=== PATIENT | male | born 1940 | race Caucasian/White ===

== ENCOUNTER → 2016-11-20 | Outpatient (CLI) | payer OTHER ==
[~2016-11-20] VITALS: Ht 180.3 cm; Wt 92.1 kg
[~2016-11-20] MED LIST: ADULT LOW DOSE81 MG PO; ASPIR 8181 MG PO; COLACE 100 MG100 MG; FINASTERIDE PO; FISH OIL 1,001000 M2 PO; FISHOIL PO; FLEXERIL PO; FLOMAX OR; HYDROCODONE-AP1 EAC6; HYDROCODONE-AP1 EAC6 PO; IBUPROFEN 200200 M1 PO; LEVAQUIN 750 M750 MG PO; LIPITOR10 MG PO; MEDROL DOSPAK21 TA1 PO; MULTIVITAMINS PO; NABUMETONE 750750 M1 PO; OMEGA-31000 MG PO; OXYCODONE HCL5 M1; PERCOCET 5-3251 EACH PO; PERCOCET 7.5-31 EACH PO; PRILOSEC 20 MG20 MG PO; PROMETHAZINE HC25 M1 PO; RAPAFLO4 MG PO
--- NOTE | ~2016-11-20 | HPC ---
[facility] [address] [place] [address] PAIN MANAGEMENT CONSULTATION Name: MAURI RAMOS Room #: REG [facility] Dotty#: [id number] Admission: 11/20/16 Attend Phys: Zac Rizzo DO Discharge: Date of : 42 Report #: [id number] THIS REPORT FOR: //name// CC: JARON Rizzo HISTORY OF PRESENT ILLNESS: The patient is a very pleasant 76-year-old gentleman, prior seen in the pain clinic for symptomatic lumbar radiculopathy in October 2015. Had subsequent back surgery with overall improvement of pain. He has had some recurrence of axial back pain with acute exacerbation of pain when he lifted a car battery to carry it out of the basement. He has had ongoing right low back pain with some radicular component on the right leg. He notes the pain is constant, sharp; rates at 7-8 on VAS; exacerbated with moving and standing. He has tried chiropractic manipulation; Flexeril, Percocet and ibuprofen all with nominal efficacy. Today, he notes the pain is primarily right low back with really no radicular component at this time. Rates the pain as 7-8 on a VAS. PHYSICAL EXAMINATION: Shows a 76-year-old gentleman, BMI is 28.3 kilograms per meter squared. Blood pressure is modestly elevated at 160/98, pulse 50, respirations 16. Alert and oriented to person, place and time; judged to be a reasonable historian. Rises from the chair using the armrest, modestly antalgic gait, discrete tenderness over the right low back, L4-L5 area. Pain is exacerbated with side bending and rotation. Flexion is limited to about 30 degrees. Lower extremity strength is objectively symmetric. Straight leg raise is negative at this time. Patellar and Achilles reflexes are symmetric. MRI was obtained prior to his back surgery, MRI was 10/26/2015, did show isovrnca-pt-mubner bilateral neural foraminal stenosis at L2-L3, superimposed right foraminal disk at L3-L4, neural foraminal stenosis L4-L5, noted superimposed right foraminal disk at this level as well. The patient had back surgery with Dr. Herman Lambert at [facility]. ASSESSMENT: Symptomatic right facet mediated pain in a gentleman with lumbar spondylosis, status post lumbar decompressive laminectomy, possible component of lumbar radiculopathy. RECOMMENDATIONS: 1. After discussion with the patient today about therapeutic options, discontinue oiat-mzn-ekqwgxd anti-inflammatories. Will start Relafen 750 b.i.d. for 30 days. 2. Right L3-L4 and L4-L5 facet joint injections under fluoroscopy. 3. With the patient prone, palpating epicenter of pain, these with the facet that appeared to be primarily responsible for pain given location and fluoroscopy. [address] [address] PAIN MANAGEMENT CONSULTATION Name: RICHARDMAURI ANN Room #: REG SEYMOUR Storm#: [id number] Admission: 11/20/16 Attend Phys: Zac Rizzo DO Discharge: Date of : 42 Report #: [id number] 4. Continue range of motion and exercise including walking up to 6-8 miles a day, follow up in 2 weeks for reevaluation. If symptoms are not significantly improved, we will want to get a new MRI to make sure we are not overlooking any other treatable pathology causing current pain. Thank you for allowing me to participate in the patient's care. I will keep you abreast of his progress. PROCEDURE NOTE: Right L3-L4 and L4-L5 facet joint injections under fluoroscopy. DESCRIPTION OF PROCEDURE: After written informed consent was obtained, the patient was taken in fluoroscopic suite, placed in prone position. After sterile prep and drape, a skin wheal was raised. Two 22-gauge stylet needle was placed to contact the inferior aspect of the right L3 and right L4-L5 facet joint. AP and lateral projections showed good needle placement. 40 mg triamcinolone plus 1 mL of 0.5% preservative-free bupivacaine was injected at each site. Both needles removed. The area was cleansed, Band-Aids applied. The patient was allowed to ambulate to recovery room, monitored for an appropriate period of time, discharged in good and stable condition, noting incremental improvement of baseline pain. Follow up in 2 weeks for reevaluation. <ELECTRONICALLY SIGNED> By: Zac Rizzo DO 11/24/16 0840 1535 1307 Zac Rizzo DO /nt
[2016-11-20 08:13] VITALS: BP 160/98
== END | disposition home or self-care (01) ==
LOC: PAIN 06:25
DX: M47.26 Other spondylosis with radiculopathy, lumbar region (principal); M47.817 Spondylosis without myelopathy or radiculopathy, lumbosacral region

== ENCOUNTER → 2016-12-04 | Outpatient (CLI) | payer OTHER ==
[~2016-12-04] VITALS: Ht 180.3 cm; Wt 89.7 kg
--- NOTE | ~2016-12-04 | HPC ---
[facility] [place] [address] [place] [address] PAIN MANAGEMENT CONSULTATION Name: RICHARDMAURI JUAREZ Room #: REG SEYMOUR Storm#: [id number] Admission: 12/04/16 Attend Phys: Zac Rizzo DO Discharge: Date of : 42 Report #: [id number] THIS REPORT FOR: //name// CC: Dennis Rizzo DATE OF SERVICE: 12/04/2016 The patient is a 76-year-old gentleman being treated for symptomatic lumbar radiculopathy status post decompressive laminectomy. He was seen 11/20/2016, I had not seen him since the prior year when he had ongoing radicular pain and we referred him to Dr. Herman Lambert for decompressive laminectomy. He did have a decompressive laminectomy and was actually doing reasonably well. Unfortunately, he had lifted a battery and carried it out of basement with acute exacerbation of axial back pain. Last visit we did right L3-4 and L4-5 facet joint injection under fluoroscopy. I did get an MRI of the lumbar spine. He returns to pain clinic today. I am pleased to note that he notes pain is really well controlled ongoing. He rates his pain a 2 on the Visual Analog Scale. Notes pain is still exacerbated with bending and lifting, though he walks 8-12 miles a day. He appears quite fit. PHYSICAL EXAMINATION: Shows a 76-year-old gentleman, BMI is 27.6 kg/m2. Blood pressure is modestly elevated at 139/94, pulse 58, respirations 20. Rises from chair using armrest. Gait is tandem. Does have a little diffuse tenderness in the low back, but again significantly improved from last visit. We did review his MRI from 12/01/2016. I used a plastic model of spine to review his specific anatomy. He does have zvbj-sk-bzbvzjbj degenerative disk disease L2-3 through L4-5. Posterior annular tears are noted L1-2 through L4-5. L2-3 notes superimposed disk bulge far lateral with left neural foraminal narrowing. L3-4 shows the prior right laminotomy defect. He does have superimposed shallow disk protrusion with eccentric right lateral recess narrowing. L4-5 notes shallow disk protrusion. He does have lumbar spondylosis at multiple levels. ASSESSMENT: Symptomatic lumbar radiculopathy status post decompressive laminectomy with component of lumbar spondylosis, symptoms well controlled with prior facet joint injections, right L3-4 and L4-5. The patient specifically notes 80% ongoing relief. RECOMMENDATIONS: Discussed with the patient today about therapeutic options. Presently, we will have him start using the nabumetone 750 b.i.d. on a nondaily p.r.n. basis. We did talk about cardiac risk factors and NSAID agents as a general class. I will be happy to see the patient as needed if symptoms recur. While he has significant areas of pathology in the back, they do not correlate [address] [address] PAIN MANAGEMENT CONSULTATION Name: MAURI RAMOS Room #: REG SEYMOUR Storm#: [id number] Admission: 12/04/16 Attend Phys: Zac Rizzo DO Discharge: Date of : 42 Report #: [id number] with specific radicular findings at this time. If symptoms come back in short order, we can consider medial branch dorsal rami diagnostic blocks with consideration for radiofrequency neurolysis of the same. If, however, symptoms come back months down the road, we can simply repeat the facet joint injections. Thank you for allowing me to participate in the patient's care. <ELECTRONICALLY SIGNED> By: Zac Rizzo DO 12/05/16 0949 1503 1941 Zac Rizzo DO /nt
[2016-12-04 09:54] VITALS: BP 139/94
== END | disposition home or self-care (01) ==
LOC: PAIN 06:55
DX: M47.26 Other spondylosis with radiculopathy, lumbar region (principal); Z98.890 Other specified postprocedural states; Z91.041 Radiographic dye allergy status; Z79.82 Long term (current) use of aspirin; Z79.899 Other long term (current) drug therapy

== ENCOUNTER → 2017-05-01 | Outpatient (CLI) | payer OTHER ==
[~2017-05-01] VITALS: Ht 180.3 cm; Wt 92.3 kg
[~2017-05-01] MED LIST changes: +ANTIVERT25 MG PO; +BACTRIM DS TAB1 EACH PO; +NORCO 5-325 TA1 EACH PO; +VALIUM2 MG PO
--- NOTE | ~2017-05-01 | HPC ---
[facility] [place] [address] PAIN MANAGEMENT CONSULTATION Name: RICHARDMAURI SANTOROJEANETTE Room #: REG SEYMOUR Storm#: [id number] Admission: 05/01/17 Attend Phys: Zac Rizzo DO Discharge: Date of : 42 Report #: [id number] THIS REPORT FOR: //name// CC: Dennis Rizzo DATE OF SERVICE: 05/01/2017 The patient is a very pleasant 77-year-old gentleman well known to pain clinic, has been treated for lumbar radicular symptoms status post decompressive laminectomy, and is generally status post cervical decompressive laminectomy a decade ago. The last 2 visits in October and November of last year, he was treated for lumbar spondylitic pain (M47.816, M47.817) without myelopathy. Pain was primarily right-sided. On 11/20/2016, I did write L3-L4 and right L4-L5 facet joint injections. On followup on 12/04/2016, the patient was doing well. We continued on nabumetone p.r.n. The patient returns to pain clinic today. He has had recurrent right lumbar radicular pain down the right leg. He notes the axial back pain is actually fairly quiescent. He notes the pain is lancinating down the right leg. He denies specific antecedent trauma and overuse. Pain has been present for some 6 weeks now. The patient has done physical therapy including daily walking anywhere from 4-8 miles and pain seems to be getting worse. He does take pqwy-sra-uyfijcf nonsteroidal anti-inflammatory medication, again all with nominal efficacy. PHYSICAL EXAMINATION: Shows a 77-year-old gentleman, vital signs are stable. Alert and oriented to person, place and time, judged to be a reasonable historian. Vital signs and BMI are on the EMR. He does not use tobacco products. He does complain of subjective pain 8 on a VAS. Rises from chair using armrest, he has modestly antalgic gait, positive straight leg raise on the right. Slight decreased right hip flexion and lower extremity extension strength. Right patellar reflex is slightly diminished compared to the left. Well-healed surgical scar. Diffuse tenderness across the low back. DIAGNOSTIC STUDIES: MRI from 12/01/2016 notes L3-L4 laminotomy, but right-sided L3-L4 and primarily L4-L5 herniated nucleus pulposus. ASSESSMENT: 1. Symptomatic lumbar radiculopathy by clinical exam and history, acute exacerbation of right L4 radicular pain, status post L3-L4 laminotomy. 2. Lumbar spondylosis without myelopathy M47.816 and M47.817, those symptoms are relatively quiescent, that is what he had been seen for in the past. 3. History of cervical radiculopathy, status post cervical decompressive laminectomy. [address] [address] PAIN MANAGEMENT CONSULTATION Name: MAURI RAMOS Room #: REG [facility] Bishop.#: [id number] Admission: 05/01/17 Attend Phys: Zac Rizzo DO Discharge: Date of : 42 Report #: [id number] RECOMMENDATION: Discussion with the patient today about therapeutic options. We have elected to move forward with epidural injection under fluoroscopy today, right of midline L4-L5. Continue nonsteroidal anti-inflammatory medication and physical therapy. Tentative followup in 2 weeks. If symptoms are not significantly improved, we will try a right L4-L5 transforaminal epidural injection at that time. PROCEDURE NOTE: Lumbar epidural injection under fluoroscopy. PROCEDURE NOTE: After both written and informed consent to include risk of spinal cord damage, increased pain, weakness and dural puncture, the patient was taken to the fluoroscopy suite, placed in the prone position. After sterile prep and drape, a skin wheal with lidocaine was raised. A 22-gauge epidural Tuohy needle was inserted in the midline at L4-L5 with good loss to resistance. Negative aspiration for cerebrospinal fluid or blood was noted. Then 1 mL of Omnipaque under biplanar fluoroscopy showed good spread within the epidural space. This was followed with 80 mg of triamcinolone plus 1 mL of 1.5% preservative-free Xylocaine, 0.5 mL Xylocaine was then injected to flush the needle; it was removed. The patient was monitored for an appropriate period of time and discharged in good and stable condition. <ELECTRONICALLY SIGNED> By: Zac Rizzo DO 05/07/17 0938 0945 1128 Zac Rizzo DO /nt
[2017-05-01 08:57] VITALS: BP 124/97
== END | disposition home or self-care (01) ==
LOC: PAIN 07:03
DX: M54.16 Radiculopathy, lumbar region (principal); M47.26 Other spondylosis with radiculopathy, lumbar region; Z98.890 Other specified postprocedural states; M54.12 Radiculopathy, cervical region

== ENCOUNTER 2017-05-07 11:39 | Emergency (ER) | payer OTHER ==
[~2017-05-07] VITALS: Ht 182.9 cm; Wt 90.7 kg
--- NOTE | ~2017-05-07 | EKG ---
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: [facility] : 1940 Requested By: Montrell Cano Order Number: [id number] MD: Tk Wagoner Measurements Intervals [place] Rate: 60 P: 74 PA: 210 QRS: 66 QRSD: 78 T: 63 QT: 442 QTc: 442 Interpretive Statements Sinus rhythm Abnormal R-wave progression, early transition Compared to ECG 09/14/2008 12:40:18 Sinus bradycardia no longer present Electronically Signed On 05-10-2017 13:21:04 CDT by Tk Wagoner [email or web address] <ELECTRONICALLY SIGNED> By: Tk Wagoner MD, [facility] 05/10/17 1321 1141 1141 Tk Wagoner MD, FAC /EPI
[~2017-05-07 11:39] MED LIST changes: -ANTIVERT25 MG PO; -BACTRIM DS TAB1 EACH PO; -NORCO 5-325 TA1 EACH PO; -VALIUM2 MG PO
[2017-05-07 12:13] LABS: ABSOLUTE NEUTROPHILS 7.2 thou/uL (1.4-8.2); BASOPHILS 0.3 % (0.0-2.0); EOSINOPHILS 0.1 % (0.0-3.0); HEMATOCRIT 47.2 % (42.0-52.0); HEMOGLOBIN 16.4 gm/dL (14.0-18.0); LYMPHOCYTES 26.8 % (24.0-44.0); MCH 32.9 pg (26.0-34.0); MCHC 34.7 g/dL (28.0-37.0); MCV 94.7 fL (80.0-100.0); MONOCYTES 8.7 % (1.0-8.0); PLATELET COUNT 206 thou/uL (150-400); POLYS 64.1 % (36.0-66.0); RBC 4.98 mil/uL (4.50-6.00); RDW 12.2 % (10.5-14.5); WBC 11.2 thou/uL (4.0-11.0)
[2017-05-07 12:24] LABS: ANION GAP 14 mmol/L (7-16); BUN 31 mg/dL (7-18); CALCIUM 9.7 mg/dL (8.5-10.1); CHLORIDE 102 mmol/L (98-107); CO2 21 mmol/L (21-32); CREATININE 1.2 mg/dL (0.7-1.3); GLUCOSE 167 mg/dL (74-106); POTASSIUM 4.1 mmol/L (3.5-5.1); SODIUM 137 mmol/L (136-145)
[2017-05-07 12:32] LABS: SGOT 22 U/L (15-37); SGPT 36 U/L (30-65); TOTAL BILIRUBIN 0.6 mg/dL (<0.1-1.0); TROPONIN-I < 0.04 ng/mL (<0.06)
[2017-05-07] MEDS ORDERED: ANTIVERT25 MG PO (14:10)
[2017-05-07] MEDS ORDERED: VALIUM2 MG PO (14:10)
[2017-05-07 14:11] VITALS: BP 141/72
== END 2017-05-07 14:27 | disposition home or self-care (01) ==
LOC: ER 11:39
PROVIDERS: Emergency Medicine
DX: H81.12 Benign paroxysmal vertigo, left ear (principal); E78.00 Pure hypercholesterolemia, unspecified; Z91.041 Radiographic dye allergy status

== ENCOUNTER → 2017-05-27 | Outpatient (CLI) | payer OTHER ==
[~2017-05-27] MED LIST changes: +ANTIVERT25 MG PO; +VALIUM2 MG PO
== END ==
LOC: MRI 06:26
DX: M47.26 Other spondylosis with radiculopathy, lumbar region (principal)

== ENCOUNTER → 2017-05-29 | Outpatient (CLI) | payer OTHER ==
[~2017-05-29] VITALS: Ht 180.3 cm; Wt 88.3 kg
--- NOTE | ~2017-05-29 | HPC ---
[facility] [place] [address] [address] [place] [address] PAIN MANAGEMENT CONSULTATION Name: MAURI RAMOS Room #: REG CLElyane Storm#: [id number] Admission: 05/29/17 Attend Phys: Zac Rizzo DO Discharge: Date of : 42 Report #: [id number] THIS REPORT FOR: //name// CC: Dennis Rizzo The patient is a very pleasant 77-year-old gentleman being treated for lumbar radiculopathy status post decompressive laminectomy. He has also had cervical decompressive laminectomy about a decade ago, though those symptoms are relatively quiescent. He does have a component of axial back pain without myelopathy. He has had two lumbar epidural injections, 05/01/2017 and again 05/15/2017 with overall improvement of pain about 80%. He was nearly unable to walk when I first saw him. He prior had decompressive hemilaminectomy in L3-L4 several years ago with good improvement of symptoms. Pain had recurred without antecedent trauma and overuse. He had been quite functional, walking up to 12 miles a day. Given ongoing symptoms after the first injection, we proceeded with a second injection and I also ordered MRI of the lumbar spine with and without contrast. Today, we reviewed those findings which were obtained on 05/27/2017. He has diffuse lumbar spondylosis at L2-L3, L3-L4 and L4-L5. Again, the prior right hemilaminectomy at L3-L4. Concern at L3-L4 that there is a new hyperintensity in the posterior aspect of the disk at 6 o'clock position consistent with a new focal annular tear. He does have severe hypertrophic posterior facet degenerative changes. The findings are suggestive of interval right hemilaminectomy and right lateral recess narrowing with a disk bulge extending into the right neural foramen resulting in mild right neural foraminal narrowing. ASSESSMENT: Symptomatic lumbar radiculopathy status post decompressive laminectomy, ongoing radicular pain in right L3 pattern, neurogenic claudication, component of axial back pain without myelopathy. RECOMMENDATIONS: I had a long discussion with the patient today about therapeutic options. I did contact Dr. Herman Lambert who kindly returned my phone call. We have elected to repeat a third lumbar epidural steroid injection today, have the patient follow up with Dr. Herman Lambert for evaluation. Dr. Lambert will present the patient's case to the weekly multidisciplinary spinal meeting for discussion and consideration for therapeutic options at that time. Today, we did briefly discuss spinal cord stimulator as a therapeutic option. I gave the patient print and video literature regarding and high frequency Nevro spinal cord stimulator system. Today, we would like to proceed with repeat epidural [place] [address] PAIN MANAGEMENT CONSULTATION Name: MAURI RAMOS Room #: REG CLElayne Storm#: [id number] Admission: 05/29/17 Attend Phys: Zac Rizzo DO Discharge: Date of : 42 Report #: [id number] ASSESSMENT: Symptomatic lumbar radiculopathy status post decompressive laminectomy. PROCEDURE: Midline epidural injection under fluoroscopy. PROCEDURE NOTE: After both written and informed consent to include risk of spinal cord damage, increased pain, weakness and dural puncture, the patient was taken to the fluoroscopy suite, placed in the prone position. After sterile prep and drape, a skin wheal with lidocaine was raised. A 22-gauge epidural Tuohy needle was inserted in the midline at L3-L4 with good loss to resistance. Negative aspiration for cerebrospinal fluid or blood was noted. Then 1 mL of Omnipaque under biplanar fluoroscopy showed good spread within the epidural space. This was followed with 80 mg of triamcinolone plus 1 mL of 1.5% preservative-free Xylocaine, 0.5 mL Xylocaine was then injected to flush the needle; it was removed. The patient was monitored for an appropriate period of time and discharged in good and stable condition. <ELECTRONICALLY SIGNED> By: Zac Rizzo DO 06/01/17 0809 1233 1358 Zac Rizzo DO /nt
[2017-05-29 09:44] VITALS: BP 130/95
== END | disposition home or self-care (01) ==
LOC: PAIN
DX: M54.16 Radiculopathy, lumbar region (principal); G62.9 Polyneuropathy, unspecified; Z98.890 Other specified postprocedural states

== ENCOUNTER 2017-08-01 08:54 | Emergency (ER) | payer OTHER ==
[~2017-08-01] VITALS: Ht 180.3 cm; Wt 83.9 kg
--- NOTE | ~2017-08-01 | EKG ---
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
[2017-08-01 09:34] LABS: URINE BLOOD 2+ (Negative); URINE CLARITY CLEAR; URINE COLOR YELLOW; URINE GLUCOSE-RANDOM* TRACE (Negative); URINE KETONES NEGATIVE (Negative); URINE NITRITE-REFLEX NEGATIVE (Negative); URINE PROTEIN (DIPSTICK) TRACE (Negative); URINE SPECIFIC GRAVITY 1.015 (1.005-1.035); URINE UROBILINOGEN >= 8.0 E.U./dl (0.2-1.0)
[2017-08-01 09:35] LABS: URINE LEUKOCYTES-REFLEX 2+ (Negative)
[2017-08-01 09:36] LABS: ICTOTEST (BILI CONFIRMATORY) Negative (Negative); URINE BILIRUBIN NEGATIVE (Negative)
[2017-08-01] MEDS ORDERED: NORCO 5-325 TA1 EACH PO (09:42)
[2017-08-01 09:44] LABS: AMP/METHAMP Negative (Negative); BACTERIA-REFLEX >30 Many /HPF (None Seen); BARBITURATES Negative (Negative); BENZODIAZEPINES Negative (Negative); CASTS None Seen /LPF (None Seen); COCAINE Negative (Negative); CRYSTALS None Seen /LPF (None Seen); METHADONE Negative (Negative); OPIATES POSITIVE (Negative); PCP Negative (Negative); SQUAMOUS None Seen /LPF (0-3); URINE RBC 0-2 Rare /HPF (0-2); URINE WBC-REFLEX 6-15 Few /HPF (0-5)
[2017-08-01] MEDS ORDERED: FLEXERIL PO (09:44)
[2017-08-01 09:47] LABS: HEMATOCRIT 30.8 % (42.0-52.0); HEMOGLOBIN 10.9 gm/dL (14.0-18.0); MCH 33.9 pg (26.0-34.0); MCHC 35.2 g/dL (28.0-37.0); MCV 96.4 fL (80.0-100.0); PLATELET COUNT 134 thou/uL (150-400); RDW 13.6 % (10.5-14.5); WBC 7.1 thou/uL (4.0-11.0)
[2017-08-01 09:54] LABS: ANION GAP 10 mmol/L (7-16); BUN 22 mg/dL (7-18); CALCIUM 8.6 mg/dL (8.5-10.1); CHLORIDE 96 mmol/L (98-107); CO2 24 mmol/L (21-32); CREATININE 1.3 mg/dL (0.7-1.3); GLUCOSE 252 mg/dL (74-106); POTASSIUM 4.1 mmol/L (3.5-5.1); SODIUM 130 mmol/L (136-145)
[2017-08-01 10:03] LABS: ALBUMIN 2.5 g/dL (3.4-5.0); MAGNESIUM 1.7 mg/dL (1.8-2.4); SGOT 43 U/L (15-37); SGPT 61 U/L (30-65); TOTAL BILIRUBIN 1.4 mg/dL (<0.1-1.0); TOTAL PROTEIN 6.4 g/dL (6.4-8.2); TROPONIN-I < 0.04 ng/mL (<0.06)
[2017-08-01 10:11] LABS: ABSOLUTE NEUTROPHILS 6.1 thou/uL (1.4-8.2)
[2017-08-01 10:12] LABS: ANISOCYTOSIS 1+; POLYCHROMASIA OCCASIONAL
[2017-08-01] MEDS ORDERED: BACTRIM DS TAB1 EACH PO (10:42)
== END 2017-08-01 11:12 | disposition home or self-care (01) ==
LOC: ER 08:54
PROVIDERS: Emergency Medicine
DX: M54.2 Cervicalgia (principal); N39.0 Urinary tract infection, site not specified; R94.5 Abnormal results of liver function studies; T48.1X5A Adverse effect of skeletal muscle relaxants [neuromuscular blocking agents], initial encounter; Y92.9 Unspecified place or not applicable; E11.9 Type 2 diabetes mellitus without complications; E78.00 Pure hypercholesterolemia, unspecified; Z91.041 Radiographic dye allergy status

== ENCOUNTER 2017-08-02 16:56 | Emergency (ER) | payer OTHER ==
[~2017-08-02] VITALS: Ht 180.3 cm; Wt 83.9 kg
[~2017-08-02 16:56] MED LIST changes: +BACTRIM DS TAB1 EACH PO; +NORCO 5-325 TA1 EACH PO
== END 2017-08-02 19:08 | disposition home or self-care (01) ==
LOC: ER 16:56
DX: R33.9 Retention of urine, unspecified (principal); E78.00 Pure hypercholesterolemia, unspecified; Z90.89 Acquired absence of other organs; Z91.041 Radiographic dye allergy status

== ENCOUNTER 2017-12-05 18:30 | Emergency (ER) | payer OTHER ==
[~2017-12-05] VITALS: Ht 180.3 cm; Wt 82.6 kg
--- NOTE | ~2017-12-05 | EKG ---
[address] [address] ELECTROCARDIOGRAM REPORT Name: RICHARDMAURI Mckay [facility] [id number] Admission: 12/05/17 Attend Phys: Discharge: 12/05/17 Date of : 42 Report #: [id number] THIS REPORT FOR: //name// [facility] ED Test Date: 2017-12-05 Test Time: 18:55:24 Pat Name: MAURI RAMOS Department: Room: Gender: M Recovery Agent: : 1940 Requested By: Valery Dolan Order Number: [id number] MD: Isiah Gutierrez Measurements Intervals [place] Rate: 56 P: 5 [place]: 166 QRS: 73 QRSD: 91 T: 86 QT: 437 QTc: 422 Interpretive Statements Sinus rhythm Motion artifact Compared to ECG 08/01/2017 09:26:06 No significant changes Electronically Signed On 12-06-2017 16:54:54 CDT by Isiah Gutierrez [email or web address] <ELECTRONICALLY SIGNED> By: Isiah Gutierrez MD 12/06/17 1654 1855 1855 MD SOHAIL Clemons
[2017-12-05 19:08] LABS: ABSOLUTE NEUTROPHILS 8.9 thou/uL (1.4-8.2); BASOPHILS 0.7 % (0.0-2.0); EOSINOPHILS 0.4 % (0.0-3.0); HEMOGLOBIN 13.6 gm/dL (14.0-18.0); LYMPHOCYTES 8.9 % (24.0-44.0); MCH 31.5 pg (26.0-34.0); MCHC 33.9 g/dL (28.0-37.0); MCV 92.8 fL (80.0-100.0); MONOCYTES 7.3 % (1.0-8.0); PLATELET COUNT 192 thou/uL (150-400); POLYS 82.7 % (36.0-66.0); RBC 4.31 mil/uL (4.50-6.00); RDW 12.9 % (10.5-14.5); WBC 10.8 thou/uL (4.0-11.0)
[2017-12-05 19:16] LABS: ANION GAP 9 mmol/L (7-16); BUN 22 mg/dL (7-18); CALCIUM 9.9 mg/dL (8.5-10.1); CHLORIDE 97 mmol/L (98-107); CO2 24 mmol/L (21-32); CREATININE 1.3 mg/dL (0.7-1.3); GLUCOSE 342 mg/dL (74-106); POTASSIUM 4.2 mmol/L (3.5-5.1); SODIUM 130 mmol/L (136-145)
[2017-12-05 19:25] LABS: ALBUMIN 3.3 g/dL (3.4-5.0); LIPASE 58 U/L (73-393); SGOT 17 U/L (15-37); SGPT 26 U/L (30-65); TOTAL BILIRUBIN 0.6 mg/dL (<0.1-1.0); TOTAL PROTEIN 7.6 g/dL (6.4-8.2); TROPONIN-I <0.06 ng/mL (<0.06)
[2017-12-05 19:43] LABS: URINE BILIRUBIN NEGATIVE (Negative); URINE BLOOD 1+ (Negative); URINE CLARITY CLEAR; URINE COLOR YELLOW; URINE GLUCOSE-RANDOM* 3+ (Negative); URINE KETONES TRACE (Negative); URINE LEUKOCYTES-REFLEX NEGATIVE (Negative); URINE NITRITE-REFLEX NEGATIVE (Negative); URINE PROTEIN (DIPSTICK) TRACE (Negative); URINE SPECIFIC GRAVITY 1.025 (1.005-1.035); URINE UROBILINOGEN 0.2 E.U./dl (0.2-1.0)
[2017-12-05 19:49] LABS: BACTERIA-REFLEX None Seen /HPF (None Seen); SQUAMOUS None Seen /LPF (0-3); URINE RBC 3-10 Few /HPF (0-2); URINE WBC-REFLEX 0-5 Rare /HPF (0-5)
[2017-12-05 19:50] LABS: CASTS None Seen /LPF (None Seen); CRYSTALS None Seen /LPF (None Seen)
== END 2017-12-05 21:43 | disposition short-term general hospital (02) ==
LOC: ER 18:30
PROVIDERS: Nurse Practitioner Family
DX: N20.0 Calculus of kidney (principal); R73.9 Hyperglycemia, unspecified; E87.1 Hypo-osmolality and hyponatremia; R11.2 Nausea with vomiting, unspecified; G47.30 Sleep apnea, unspecified; E78.00 Pure hypercholesterolemia, unspecified; Z91.041 Radiographic dye allergy status; Z90.89 Acquired absence of other organs; Z87.442 Personal history of urinary calculi

== ENCOUNTER → 2018-01-29 | Outpatient (CLI) | payer OTHER | LOC: CAT 15:58 | DX: R90.82 White matter disease, unspecified (principal); G31.9 Degenerative disease of nervous system, unspecified; H81.13 Benign paroxysmal vertigo, bilateral ==

== ENCOUNTER → 2018-02-05 | Outpatient (CLI) | payer OTHER | LOC: MRI 13:49 | DX: R42 Dizziness and giddiness (principal); R51 Headache ==

== ENCOUNTER → 2018-05-17 | Outpatient (CLI) | payer OTHER | LOC: CAT 08:27 | DX: N20.0 Calculus of kidney (principal); K42.9 Umbilical hernia without obstruction or gangrene; N40.0 Benign prostatic hyperplasia without lower urinary tract symptoms; K40.20 Bilateral inguinal hernia, without obstruction or gangrene, not specified as recurrent; K76.0 Fatty (change of) liver, not elsewhere classified; K57.30 Diverticulosis of large intestine without perforation or abscess without bleeding; M47.816 Spondylosis without myelopathy or radiculopathy, lumbar region; Z91.041 Radiographic dye allergy status ==

== ENCOUNTER → 2018-07-26 | Outpatient (CLI) | payer OTHER ==
[~2018-07-26] VITALS: Ht 182.9 cm; Wt 83.9 kg
[~2018-07-26] MED LIST changes: +METFORMIN HCL500 MG PO
--- NOTE | ~2018-07-26 | P ---
[facility] [address] [address] PROCEDURE REPORT Name: MAURI RAMOS [id number] Admission: 07/26/18 ������������������ Attend Phys: Federico Morin MD Discharge: ������������������ Date of : 42 Report #: [id number] THIS REPORT FOR: //name// CC: Federico Ho MD DATE OF SERVICE: 07/26/2018 OUTPATIENT COLONOSCOPY: BRIEF HISTORY: The patient is a 78-year-old male for high risk screening colonoscopy due to history of colon polyps. Last colonoscopy was approximately 5 years ago. PREOPERATIVE DIAGNOSIS: High risk screening colonoscopy. POSTOPERATIVE DIAGNOSES: 1. Diminutive polyp at 50 cm. 2. Diverticulosis coli. 3. Small to moderate internal hemorrhoids. 4. Old scarring, splenic flexure. MEDICATIONS: Deep sedation with propofol per anesthesia. SPECIMEN: Polyp from 50 cm. ESTIMATED BLOOD LOSS: 3 mL. PROCEDURE: Colonoscopy to cecum and terminal ileum with biopsy. FINDINGS: Prior to propofol sedation, procedure of colonoscopy discussed with the patient as well as potential risks and its complications. He indicates he understands and desires to proceed. DESCRIPTION OF THE PROCEDURE: With the patient in left lateral decubitus position, digital examination was completed, which revealed no abnormalities. Subsequently, the Olympus video colonoscope was introduced in the rectum, advanced under direct vision to the cecum. Done with minimal difficulty. The cecum was identified by the ileocecal valve and the appendiceal orifice. I was able to visualize the distal segment of the terminal ileum, which was inspected and noted to be unremarkable. At that point, the scope was slowly withdrawn and careful circumferential views were obtained including retroflexing the scope in the ascending colon. Upon slow withdrawal of the scope, the prep was generally good. There were some minor limitations and we were able to clean this up with the scope upon withdrawal of the instrument. The mucosa was within normal [facility] [address] [place] [address] PROCEDURE REPORT Name: RICHARDMAURI Woody Room #: REG [facility] Bishop.#: [id number] Admission: 07/26/18 ������������������ Attend Phys: Federico Morin MD Discharge: ������������������ Date of : 42 Report #: [id number] limits, normal vascular pattern, normal light reflex. No abnormalities were noted until the region of the splenic flexure was reached at which point there was noted to be what appeared to be scarring likely from previous inflammatory process. Active inflammation was not seen. This was felt to be old. The scope was further withdrawn and at 50 cm, a diminutive polyp was seen and removed with biopsy forceps. In the sigmoid colon, there was noted to be moderately severe diverticular disease without endoscopic evidence of diverticulitis. The scope was withdrawn in the rectum, no abnormalities were seen. However, upon retroflexion of the scope, small to moderate internal hemorrhoids were seen. Scope was withdrawn. The patient tolerated the procedure well. CONDITION OF THE PATIENT UPON DISCHARGE: Following procedure, the patient was drowsy, aroused, conversant and will be discharged home when fully ambulatory. INSTRUCTIONS TO THE PATIENT AND FAMILY AT THE TIME OF DISCHARGE: We will follow up on the path of polyp. If this is an adenoma, I suggest return in 5 years for a high risk screening colonoscopy. If it is not an adenoma, then at this point in life, he would not likely benefit from routine colonoscopy. However, if a problem should develop, he could pursue colonoscopy as needed for those problems at that time. Last colonoscopy was in 02/2013. Withdrawal time from cecum was 14 minutes 29 seconds. ��������������������������������������������� ���������������������������������������� By: ��������������������������������������������� 0922 0316 Federico Morin MD /nt
--- NOTE | 2018-07-27 17:06 | PATH ---
[facility] [place] [address] PATHOLOGY RPT PROCEDURE Name: MAURI NUNEZ Room #: REG [facility].#: [id number] ������������������ Admission: 07/26/18 ������������������ Date of : 44 Discharge: Report #: [id number] Path Case #: [id number] [facility] Accession Number: [id number] . 01 Material submitted: . colon - BX POLY AT 50CM . 01 Clinical history: . Pre-OP DX: Hx polyps Post-OP DX: Colon polyp, diverticulosis, hemorrhoid . 02 Diagnosis: Polyp, at 50 cm, endoscopic biopsy: - Inflamed tubular adenoma. - Negative for high grade dysplasia. (IUV/db; 07/27/2018) LBQ/07/27/2018 . 02 Electronically signed: . Lourdes Hutson MD, Pathologist NPI- [id number] . 01 Gross description: . Received in formalin labeled "Mauri Nunez, BX polyp at 50 cm," is a single segment of jacobs soft tissue measuring 0.4 cm in maximum dimension. The specimen is entirely submitted in cassette A1. (TSD; 07/26/2018) TOB/TOB . 02 Pathologist provided ICD-10: D12.6 . 02 CPT . 160717 Specimen Comment: A courtesy copy of this report has been sent to Specimen Comment: [phone], . Specimen Comment: Report sent to / DR CALZADA Performed at: [address], [place] [id number] MD Shakeel Ray MD Phone: [phone] Performed at: [address] [id number] MD Lourdes Hutson MD Phone: [phone]
== END | disposition home or self-care (01) ==
LOC: GI 06:41
DX: Z12.11 Encounter for screening for malignant neoplasm of colon (principal); Z86.010 Personal history of colon polyps; D12.5 Benign neoplasm of sigmoid colon; K57.30 Diverticulosis of large intestine without perforation or abscess without bleeding; K64.8 Other hemorrhoids; K63.89 Other specified diseases of intestine; E78.5 Hyperlipidemia, unspecified; E11.9 Type 2 diabetes mellitus without complications; H81.12 Benign paroxysmal vertigo, left ear; Z79.82 Long term (current) use of aspirin; Z79.899 Other long term (current) drug therapy; Z87.442 Personal history of urinary calculi; Z98.890 Other specified postprocedural states; Z91.041 Radiographic dye allergy status
CPT/HCPCS: 62110; 62900

== ENCOUNTER → 2019-06-30 | Outpatient (CLI) | payer OTHER | LOC: SJCVC 10:44 | DX: I44.0 Atrioventricular block, first degree (principal); R00.1 Bradycardia, unspecified; I10 Essential (primary) hypertension; E78.00 Pure hypercholesterolemia, unspecified; E11.9 Type 2 diabetes mellitus without complications; K40.90 Unilateral inguinal hernia, without obstruction or gangrene, not specified as recurrent; G47.33 Obstructive sleep apnea (adult) (pediatric); Z79.899 Other long term (current) drug therapy ==

== ENCOUNTER 2019-07-06 06:53 | Day surgery (SDC) | payer OTHER ==
[~2019-07-06] VITALS: Ht 180.3 cm; Wt 81.6 kg
--- NOTE | ~2019-07-06 | O ---
[facility] [place] [address] [address] [place] [address] OPERATIVE REPORT Name: MAURI RAMOS Room #: 150-2 [facility]#: [id number] Admission: 07/06/19 Attend Phys: Ryan Cruz MD Discharge: Date of : 44 Report #: [id number] THIS REPORT FOR: cc: Dennis Ho MD, Rene P. MD Franey,Ryan Ferrera MD ~ CC: Dennis Cruz DATE OF SERVICE: 07/06/2019 PATIENT OF: Dr. Ryan Cruz and Dr. Dennis Ho PREOPERATIVE DIAGNOSIS: Right inguinal hernia. POSTOPERATIVE DIAGNOSIS: Right inguinal hernia with a right cord lipoma. PROCEDURE: Right inguinal hernia repair with Prolene hernia system mesh and excision of right cord lipoma. SURGEON: Ryan Cruz MD ANESTHESIA: Local IV sedation. DESCRIPTION OF PROCEDURE: The patient was brought to the operating room and placed on the table in the supine position. Sequential compression devices were in place for DVT prophylaxis. There was no indication for preoperative antibiotics. The patient underwent IV sedation. The right inguinal area was prepped and draped in a sterile fashion. Skin and subcutaneous tissue were then infiltrated with 0.5% Marcaine and 1% Xylocaine in a 1:1 mixture. Right inguinal skin incision was then performed using #10 scalpel blade. Hemostasis obtained using electrocautery as well as clamps and 2-0 chromic ties. Dissection was carried down through the subcutaneous tissue, Dwight's fascia, the external oblique fascia. The external oblique fascia was then incised with a knife and opened with the Metzenbaum scissors. The ilioinguinal nerve was identified, dissected free, injected with a local mixture and preserved. Cord was then elevated and held in place with Mekhi drain. Cremasteric muscle fibers were then split in the direction of their fibers using clamp and electrocautery. A large cord lipoma was identified, dissected free, clamped, excised and tied with 2-0 chromic tie. An indirect inguinal hernia sac was identified, dissected free and reduced back through the internal ring. An extended Prolene hernia system mesh was then inserted through the internal ring and then underlay patch was then deployed in the preperitoneal space. Connector was left in the internal ring. The floor was then closed and tightened around the connector and internal ring using running 2-0 Prolene 2-layer [address] [address] OPERATIVE REPORT Name: MAURI RAMOS Room #: 150-2 [facility].#: [id number] Admission: 07/06/19 Attend Phys: Ryan Cruz MD Discharge: Date of : 44 Report #: [id number] repair. The overlay patch was then deployed in the inguinal canal and secured the pubic tubercle with the same running 2-0 Prolene suture. The mesh was then secured superiorly and at the connector using simple interrupted 2-0 Vicryl sutures. The mesh was split and wrapped around the cord, secured to the inguinal ligament with simple interrupted 2-0 Vicryl suture. The cord and ilioinguinal nerve then returned to the canal intact. The external oblique fascia was then closed using running 2-0 Vicryl suture. Dwight's fascia was then reapproximated using 3 simple interrupted 2-0 chromic sutures and the skin then closed with a running 4-0 subcuticular Vicryl stitch. Wound was then dressed with Mastisol, 1/2-inch Steri-Strips cut in half, Telfa, 4 x 4 gauze, sponge and tape. The patient was then awakened from the IV sedation, taken to recovery room in good condition. Estimated blood loss was approximately 10 mL and the patient tolerated procedure well. All sponge, lap and instrument counts correct x 2. By: 1047 1149 Ryan Cruz MD /nt
[2019-07-06 08:23] VITALS: BP 139/70
[2019-07-06] MEDS ORDERED: NORCO 5-325 TA1 EAC1 PO (08:56)
--- NOTE | 2019-07-06 10:50 | H ---
[facility] [place] [address] HISTORY AND PHYSICAL Name: MAURI RAMOS Room #: 150-2 [facility]..#: [id number] Admission: 07/06/19 Attend Phys: Ryan Cruz MD Discharge: Date of : 44 Report #: [id number] THIS REPORT FOR: cc: Dennis Ho MD, Rene P. MD Franey,Ryan Ferrera MD ~ CC: Dennis Cruz SURGERY ADMISSION HISTORY AND PHYSICAL PATIENT OF: Dr. Dennis Ho. DATE OF ADMISSION AND SURGERY: 07/06/2019. CHIEF COMPLAINT: Pain and swelling in the right groin. HISTORY OF PRESENT ILLNESS: The patient is a 79-year-old white male who for about 11 months has had intermittent, sharp knife-like pain in the right groin. It is worse with movement. He has occasionally noticed a bulge. He denies any recent changes in bowel or bladder habits. He is followed by urologist for kidney stones and other urological problems. He has had a left inguinal hernia repair, he states in the . He saw Dr. Ho who recommended an ultrasound of the inguinal area due to some right testicular pain and this was unremarkable except for a few small hydroceles. He was then sent for surgical consultation. PAST MEDICAL AND SURGICAL HISTORY: Transurethral prostatectomy, knee arthroscopy, cervical laminectomy, nephrolithiasis, left inguinal hernia repair in 1989, pancreatic cyst drainage in 01/2018, tonsillectomy and adenoidectomy in 8, lumbar laminectomy in 2018, hyperlipidemia and type 2 diabetes. MEDICATIONS: Aspirin, fish oil, atorvastatin, metformin FAMILY HISTORY: Mother with history of diabetes and coronary artery disease, myocardial infarction. Father with a history of coronary artery disease and myocardial infarction. ALLERGIES: CONTRAST DYE causes itching. SOCIAL HISTORY: . Drinks alcohol occasionally, does not smoke. He 1is retired. He has 2 sons. His is a former nurse. REVIEW OF SYSTEMS: Pertinent positives as above, otherwise negative. PHYSICAL EXAMINATION: [facility] [address] [place] [address] HISTORY AND PHYSICAL Name: MAURI RAMOS Room #: 150-2 [facility]..#: [id number] Admission: 07/06/19 Attend Phys: Ryan Cruz MD Discharge: Date of : 44 Report #: [id number] GENERAL: This is a well-developed, well-nourished white male in no acute distress. VITAL SIGNS: Stable. He is afebrile. Height is 71 inches, weight is 188 pounds, BMI of 26.2. HEENT: Sclerae are nonicteric. Mucous membranes moist and pink. NECK: There is no adenopathy, no thyromegaly. LUNGS: Clear to auscultation bilaterally. Normal excursion. CARDIOVASCULAR: Regular rate and rhythm. No murmurs, S3, S4, no PMI. ABDOMEN: Soft, flat and nontender. No palpable masses, no organomegaly, no hernias. GENITOURINARY: Normal scrotum, phallus and testes. There is a well-healed left inguinal hernia incision scar. He does have a small to moderate reducible right inguinal hernia. There is also a small reducible asymptomatic left inguinal hernia, which is recurrent. EXTREMITIES: No clubbing, cyanosis or edema. NEUROLOGIC: Intact with a clear mental status. IMPRESSION: A 79-year-old white male with a symptomatic new right inguinal hernia as well as an asymptomatic small recurrent left inguinal hernia. I fully discussed with the patient the diagnosis, prognosis, and treatment options. He states he understands and agrees to the proposed surgery. PLAN: We will perform a right inguinal hernia repair under local IV sedation as an outpatient at [facility]. The procedure and its risks, benefits and possible complications including the use of mesh, fully discussed with the patient and his . They state they understand and agreed to proposed surgery. <ELECTRONICALLY SIGNED> By: Ryan Cruz MD 07/06/19 1050 1211 1225 Ryan Cruz MD /nt
[2019-07-06 11:01] VITALS: BP 139/70
--- NOTE | 2019-07-07 14:08 | PATH ---
[facility] [address] [place] [address] PATHOLOGY RPT PROCEDURE Name: MAURI NUNEZ Room #: 150-2 [facility] M.R.#: [id number] Admission: 07/06/19 Date of : 44 Discharge: Report #: [id number] Path Case #: [id number] [facility] Accession Number: [id number] . 01 Material submitted: . inguinal area - CORD LIPOMA . 01 Clinical history: . Right inguinal hernia . 02 Diagnosis: Mature adipose tissue, cord lipoma, excision: - Compatible with a lipoma. - Fragments of congested fibrovascular connective tissue. 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 02 Electronically signed: . Lourdes Hutson MD, Pathologist NPI- [id number] . 01 Gross description: . The specimen is received in formalin, labeled "Mauri Nunez, cord lipoma". Received are multiple segments of partially encapsulated bright yellow lobulated tissue measuring 6.6 x 5.2 x 3.2 cm in aggregate dimensions. Sectioning reveals bright yellow cut surfaces with no grossly distinct nodules or lesions. The specimen is submitted representatively in cassette A1. (CAA; 07/06/2019) QAC/QA 07/06/2019 1343 Local . 02 Pathologist provided ICD-10: D17.6 . 02 CPT . 058945 Specimen Comment: A courtesy copy of this report has been sent to [phone] Specimen Comment: Report sent to Performed at: [address] [facility], [place], [place] [id number] MD Shakeel Ray MD Phone: [phone] Performed at: [address] [id number] MD Lourdes Hutson MD Phone: [phone]
== END 2019-07-06 12:35 | disposition home or self-care (01) ==
LOC: OR 06:53 → TBA 06:53 → OR 07:49
DX: K40.90 Unilateral inguinal hernia, without obstruction or gangrene, not specified as recurrent (principal); D17.6 Benign lipomatous neoplasm of spermatic cord; E11.9 Type 2 diabetes mellitus without complications; E78.5 Hyperlipidemia, unspecified; Z98.890 Other specified postprocedural states; Z87.442 Personal history of urinary calculi; Z79.899 Other long term (current) drug therapy; Z91.041 Radiographic dye allergy status
CPT/HCPCS: 50010; 50101; 50386; 50417; 54111; 56524; 56525; 56526; 56528; 62110; 62850; 70005

== ENCOUNTER → 2020-08-03 | Outpatient (CLI) | payer OTHER, MEDICARE ==
[~2020-08-03] MED LIST changes: +NORCO 5-325 TA1 EAC1 PO
== END ==
LOC: MRI 12:18
PROVIDERS: ATTEND Family Medicine
DX: M47.26 Other spondylosis with radiculopathy, lumbar region (principal); M48.061 Spinal stenosis, lumbar region without neurogenic claudication; M51.16 Intervertebral disc disorders with radiculopathy, lumbar region; M51.37 Other intervertebral disc degeneration, lumbosacral region; M47.817 Spondylosis without myelopathy or radiculopathy, lumbosacral region